=== PATIENT | male | born 1960 | race Caucasian/White ===

== ENCOUNTER 2019-09-07 09:18 | Emergency (ER) | payer BC ==
[2019-09-07 10:01] VITALS: BP 152/89
--- NOTE | 2019-09-07 10:46 | UC ---
[facility] HPI - HPI Summary HPI Summary: Pt c/o swelling and tenderness left lower tooth and gum. Pt has know tooth disease and needs to have tooth pulled. Pt was seen by dentist and copyholder and is scheduled to have tooth pulled next week. - History of Current Complaint Chief Complaint: UCDentalProblem Stated Complaint: DENTAL Time Seen by Provider: 09/07/19 10:41 Hx Obtained From: Patient Onset/Duration: Sudden Onset, Lasting Days, Still Present, Worse Since - onset Severity: Severe Pain Intensity: 8 Aggravating Factor(s): Heat, Cold, Chewing Related History: Previous Dental Care on Same Tooth, Swelling - Allergies/Home Medications Allergies/Adverse Reactions: Allergies Allergy/AdvReac Type Severity Reaction Status Date / Time No Known Allergies Allergy Verified 09/07/19 10:01 PMH/Surg Hx/FS Hx/Imm Hx Previously Healthy: Yes - Surgical History Surgical History: Yes Surgery Procedure, Year, and Place: hernia repair ~ 2000 - Family History Known Family History: Positive: Cardiac Disease - Social History Occupation: Employed Full-time Lives: With Family Alcohol Use: Weekly Substance Use Type: None Smoking Status (MU): Never Smoked Tobacco Have You Smoked in the Last Year: No - Immunization History Most Recent Tetanus Shot: 02/25/2013 Vaccination Up to Date: Yes Review of Systems All Other Systems Reviewed And Are Negative: Yes Constitutional: Positive: Negative Skin: Positive: Negative Eyes: Positive: Negative ENT: Positive: Dental Pain Respiratory: Positive: Negative Cardiovascular: Positive: Negative Gastrointestinal: Positive: Negative Genitourinary: Positive: Negative Motor: Positive: Negative Neurovascular: Positive: Negative Musculoskeletal: Positive: Negative Neurological: Positive: Negative Psychological: Positive: Negative Is Patient Immunocompromised?: No Physical Exam Triage Information Reviewed: Yes Appearance: Pain Distress Vital Signs: Initial Vital Signs Temp 98.6 F 09/07/19 09:57 Pulse 65 09/07/19 09:57 Resp 18 09/07/19 09:57 BP 152/89 09/07/19 09:57 Pulse Ox 100 09/07/19 09:57 Vital Signs Reviewed: Yes Eye Exam: Normal ENT Exam: Normal Dental: Positive: Abscess @ - left lower gum, #[id number] Neck exam: Normal Respiratory Exam: Normal Cardiovascular Exam: Normal Musculoskeletal Exam: Normal Neurological Exam: Normal Psychological Exam: Normal Skin Exam: Normal Dental Complaint Course/Dx - Differential Dx/Diagnosis Differential Diagnosis/Dx: Dental Abscess, Dental Caries, Fractured Tooth Provider Diagnosis: Dental abscess Discharge ED - Sign-Out/Discharge Documenting (check all that apply): Patient Departure All imaging exams completed and their final reports reviewed: No Studies - Discharge Plan Condition: Stable Disposition: HOME Prescriptions: Clindamycin Cap(NF) [Clindamycin Cap 300 mg Cap(NF)] 300 mg PO Q6H #40 cap Patient Education Materials: Dental Abscess (ED), Safe Use of NSAIDs (ED) Referrals: Shayne Martínez MD [Primary Care Provider] - If Needed Additional Instructions: Please follow up with your dental care provider as soon as possible. - Billing Disposition and Condition Condition: STABLE Disposition: Home
== END 2019-09-07 10:52 | disposition home or self-care (01) ==
LOC: UCCORT 09:18
DX: K04.7 Periapical abscess without sinus (principal)
CPT/HCPCS: 99202; G0463

== ENCOUNTER 2019-11-03 10:07 | Emergency (ER) | payer BC ==
[2019-11-03 11:21] VITALS: BP 150/74
--- NOTE | 2019-11-03 12:32 | UC ---
Throat Pain/Nasal Darius HPI - HPI Summary HPI Summary: Sore throat and right ear pressure since yesterday morning. Tmax 100.5 yesterday. Taking ibuprofen 400mg prn w/ pain relief; last dose today 0800. - History of Current Complaint Chief Complaint: UCRespiratory Stated Complaint: SORE THROAT Time Seen by Provider: 11/03/19 12:31 Hx Obtained From: Patient Pain Intensity: 6 Pain Scale Used: 0-10 Numeric - Allergies/Home Medications Allergies/Adverse Reactions: Allergies Allergy/AdvReac Type Severity Reaction Status Date / Time No Known Allergies Allergy Verified 11/03/19 11:17 Home Medications: Home Medications NK [No Home Medications Reported] 11/03/19 [History Confirmed 11/03/19] PMH/Surg Hx/FS Hx/Imm Hx Previously Healthy: Yes - Surgical History Surgical History: Yes Surgery Procedure, Year, and Place: hernia repair ~ 2000 - Family History Known Family History: Positive: Cardiac Disease - Social History Alcohol Use: Weekly Alcohol Amount: weekends Substance Use Type: None Smoking Status (MU): Never Smoked Tobacco Have You Smoked in the Last Year: No - Immunization History Most Recent Tetanus Shot: 02/25/2013 Vaccination Up to Date: Yes Review of Systems All Other Systems Reviewed And Are Negative: Yes ENT: Positive: Sore Throat, Ear Ache. Negative: Sinus Congestion, Sinus Pain/ Tenderness Respiratory: Negative: Cough Physical Exam Triage Information Reviewed: Yes Appearance: Well-Appearing Vital Signs: Initial Vital Signs Temp 98.6 F 11/03/19 11:17 Pulse 79 11/03/19 11:17 Resp 16 11/03/19 11:17 BP 150/74 11/03/19 11:17 Pulse Ox 99 11/03/19 11:17 Vital Signs Reviewed: Yes Eyes: Positive: Conjunctiva Clear ENT: Positive: Pharyngeal erythema, Tonsillar swelling - R side Neck: Positive: Supple, Tenderness @ - R singular, upper ant. chain, Enlarged Nodes @ - R upper ant. chain Respiratory Exam: Normal Cardiovascular Exam: Normal Neurological: Positive: Alert Skin: Negative: Rashes Throat Pain/Nasal Course/Dx - Course Course Of Treatment: Pharyngitis w/ erythematous oropharynx on exam. rapid strep neg. vitals good. conservative tx recommended. - Differential Dx/Diagnosis Differential Diagnosis/HQI/PQRI: Pharyngitis, URI, Other Provider Diagnosis: Pharyngitis Discharge ED - Sign-Out/Discharge Documenting (check all that apply): Patient Departure All imaging exams completed and their final reports reviewed: No Studies - Discharge Plan Condition: Good Disposition: HOME Patient Education Materials: Pharyngitis (ED) Referrals: Shayne Martínez MD [Primary Care Provider] - Additional Instructions: if worsening please see your primary care provider. Of note your blood pressure is a bit elevated and should be discussed w/ your pcp. - Billing Disposition and Condition Condition: GOOD Disposition: Home - Attestation Statements Provider Attestation: This patient was not seen by me. I was available for consult. Chart reviewed. ROBERTO
== END 2019-11-03 13:00 | disposition home or self-care (01) ==
LOC: UCCORT 10:07
DX: J02.9 Acute pharyngitis, unspecified (principal); H92.01 Otalgia, right ear
CPT/HCPCS: 87651; 99211; G0463